=== PATIENT | male | born 1995 | race Caucasian/White ===

== ENCOUNTER 2017-03-03 22:23 | Inpatient (IN) ==
[2017-03-03 23:25] LABS: Basophils # 0.1 K/mcL (0.0-0.2); Basophils % 0.4 %; Eosinophils # 0.4 K/mcL (0.0-0.6); Eosinophils % 2.7 %; Hematocrit 53.7 % (37.5-50.1); Hemoglobin 17.6 g/dL (12.9-16.9); Immature Granulocytes % 0.4 % (0-4); Lymphocytes # 4.3 K/mcL (0.6-4.6); Lymphocytes % 33.1 %; Mean Corpuscular HGB Conc 32.8 g/dL (31.6-35.5); Mean Corpuscular Hemoglobin 27.9 pg (28.0-33.3); Mean Corpuscular Volume 85.2 fL (83.0-100.0); Mean Platelet Volume 10.8 fL (9.4-12.4); Monocytes # 1.2 K/mcL (0.0-1.3); Neutrophils # 7.1 K/mcL (1.6-8.9); Platelet Count 327 K/mcL (140-400); Red Cell Distribution Width 12.2 % (11.5-14.5); Segmented Neutrophils % 54.4 %
[2017-03-03 23:28] LABS: Bilirubin,Urine Negative (Negative); Blood,Urine Negative (Negative); Clarity,Urine Clear (Clear); Color,Urine Yellow (Yellow); Glucose,Urine (UA) Normal (Normal); Ketones,Urine Negative (Negative); Leukocyte Esterase,Urine Negative (Negative); Nitrite,Urine Negative (Negative); PH,Urine 6.5 pH Units (5.0-8.0); Protein,Urine Trace mg/dL (Neg-Trace); Specific Gravity,Urine > 1.030 (1.010-1.025); Urobilinogen,Urine Normal (Normal)
[2017-03-03 23:31] LABS: Bacteria,Urine None Seen per hpf (None-Few); Hyaline Casts,Urine None Seen per lpf (None-Few); RBC,Urine 0-3 per hpf (0-3); Squamous Epithelial Cell,Urine None Seen per lpf (None-Few); WBC,Urine 0-3 per hpf (0-3)
[2017-03-03 23:34] LABS: Amphetamine Screen,Urine Negative ng/mL (Cutoff=1000); Barbiturate Screen,Urine Negative ng/mL (Cutoff=200); Benzodiazepines Screen,Urine Negative ng/mL (Cutoff=200); Cannabinoid Screen,Urine Positive ng/mL (Cutoff = 50); Cocaine Screen,Urine Negative ng/mL (Cutoff= 300); Opiate Screen,Urine Negative ng/mL (Cutoff=300); Phencyclidine Screen,Urine Negative ng/mL (Cutoff=25)
[2017-03-03 23:37] LABS: BUN/Creatinine Ratio 16 (6-26); Blood Urea Nitrogen 15 mg/dL (8-26); Calcium 10.1 mg/dL (8.6-10.8); Carbon Dioxide 28 mEq/L (19-29); Chloride 102 mEq/L (98-109); Glucose 88 mg/dL (70-99); Osmolality,Calculated 290 (280-300); Potassium 3.6 mEq/L (3.5-4.5); Sodium 140 mEq/L (136-145); eGFR For African Americans > 60 (> 60); eGFR For Non-African Americans > 60 (> 60)
--- NOTE | 2017-03-03 23:46 | Emergency Department Note ---
Disposition Clinical Impression: Suicidal ideation Depression Qualifiers: Depression Type: unspecified Qualified Code(s): F32.9 - Major depressive disorder, single episode, unspecified Disposition: Admitted As Inpatient Condition: Good Time of Disposition: 07:21 Psych HPI - General Chief Complaint: ED Psychiatric Symptoms Stated Complaint: Depression. SI Time Seen by Provider: 03/03/17 22:48 Source: patient Nursing Notes Reviewed: Yes Vital Signs Reviewed: Yes - History of Present Illness HPI Narrative: 21-year-old male complains of depression and suicidal ideation 4-5 months. He does describe the plan of wanting to hang himself. He describes a long history of psychiatric illness, going back to his childhood. He mentions in his youth he was given rounds of different antidepressant medications. He mentions he currently is not followed by a family practice provider, or any mental health providers. He does mention as an adult e had been on Depakote, previously diagnosed for bipolar, however he was seen at the [facility] in 2016 was told that he was bipolar and was taken off Depakote. He denied any benefit side effects of Depakote and mentions he had not felt any different afterwards. He does mention he has good support from his family however he denies any significant life stressors. He is accompanied by his sister who adds that there is a strong family history of depression. Vision denies any recent illness, fevers, auditory or visual hallucinations, anxiety. - Related Data Home Medications Medication Instructions Recorded Confirmed No Known Home Drugs 03/03/17 03/03/17 Allergies Allergy/AdvReac Type Severity Reaction Status Date / Time No Known Allergies Allergy Verified 03/03/17 22:25 All systems ED: reviewed and negative except as stated. Constitutional: Denies: fever, chills Eyes: Denies: eye discharge ENT ED: Denies: throat pain Cardiovascular: Denies: palpitations Respiratory: Denies: dyspnea Gastrointestinal: Denies: abdominal pain, nausea, vomiting Genitourinary: Denies: dysuria Musculoskeletal: Denies: back pain, neck pain Integumentary: Denies: rash Neurological: Denies: headache, weakness, numbness, paresthesias Psychiatric: Reports: depression, suicidal thoughts. Denies: anxiety, homicidal thoughts, auditory hallucinations, visual hallucinations Endocrine: Denies: fatigue Hematological/Lymphatic: Denies: easy bleeding Allergic/Immunologic: Denies: facial swelling Past Medical History - Past Medical History Medical history: Reports: no medical history Psychiatric history: Reports: depression, previous psychiatric hospitalization - Social History Smoking Status: Current every day smoker Smokeless Tobacco Status: No Alcohol use: Reports: rarely Drug use: Reports: none Physical Exam - General Limitations: no limitations General appearance: alert, in no apparent distress - Head Head exam: normocephalic - Eye Eye exam: Present: EOMI. Absent: conjunctival injection - ENT ENT exam: normal oropharynx, mucous membranes moist - Neck Neck exam: Present: full ROM - Chest Chest inspection: Present: symmetric chest wall rise - Respiratory Respiratory exam: Present: normal lung sounds bilaterally. Absent: respiratory distress - Cardiovascular Cardiovascular exam: Present: regular rate, normal rhythm - Abdominal Exam Abdominal exam: Present: soft, Non-Tender - Extremities Exam Extremities exam: Present: normal inspection, full ROM, normal capillary refill - Back Exam Back exam: Present: normal inspection, full ROM - Neurological Exam Neurological exam: Present: alert, oriented X3 - Psychiatric Psychiatric exam: Present: normal affect, normal mood - Skin Skin exam: Present: warm, dry, intact, normal color. Absent: rash, cyanosis, diaphoresis Course Course Narrative: Patient presents with 4-5 month history of depression and suicidal ideation. Currently not being followed by mental health providers and not taking any medications. He does describe the plan of wanting to hang himself. Denies any home medications. Does admit to marijuana and denies any other drug use. Workup for medical clearance for 1A evaluation have been ordered. - Reevaluation(s) Reevaluation #1: Patient's has a slight elevation of white blood cell count. He denies any recent illness, fevers, dysuria, shortness of breath. Patient does not appear toxic, he is afebrile, and is not tachycardic. He does mention a history of COPD. We will order a chest x-ray to evaluate for pneumonia, within normal limits feel his white count may be related to his COPD. Time: 23:48 Reevaluation #2: Chest x-ray reviewed by myself interpreted radiologist. No acute concerns. Patient medically cleared for behavioral health evaluation. Time: 00:39 Vital Signs Temperature 98.0 F 03/03/17 22:25 Pulse Rate 83 03/03/17 22:25 Respiratory Rate 14 03/03/17 22:25 Blood Pressure 133/93 03/03/17 22:25 O2 Sat by Pulse Oximetry 98 03/03/17 22:25 Temperature 97 F L 03/04/17 03:24 Pulse Rate 67 03/04/17 03:24 Respiratory Rate 16 03/04/17 03:24 Blood Pressure 142/89 03/04/17 03:24 O2 Sat by Pulse Oximetry 98 03/03/17 22:25 Oxygen Delivery Oxygen Delivery Room Air Psych - MDM Narrative Medical decision making narrative: Chest X-Ray 03/03/17 23:48 IMPRESSION: 1. No acute cardiopulmonary disease. D/ / Skip Sotomayor MD / Skip Sotomayor MD Interpreting Provider: Skip Sotomayor MD - Lab Data Result diagrams: 03/03/17 23:00 03/03/17 23:00 Lab Results 03/03/17 03/03/17 03/03/17 Range/Units 22:46 22:55 23:00 WBC 13.1 H (4.3-11.1) K/mcL RBC 6.30 H (4.19-5.50) M/mcL Hgb 17.6 H (12.9-16.9) g/dL Hct 53.7 H (37.5-50.1) % MCV 85.2 (83.0-100.0) fL MCH 27.9 L (28.0-33.3) pg MCHC 32.8 (31.6-35.5) g/dL RDW 12.2 (11.5-14.5) % Plt Count 327 (140-400) K/mcL MPV 10.8 (9.4-12.4) fL Immature Gran % 0.4 (0-4) % Seg Neutrophils % 54.4 % Lymphocytes % 33.1 % Monocytes % 9.0 % Eosinophils % 2.7 % Basophils % 0.4 % Neutrophils # 7.1 (1.6-8.9) K/mcL Lymphocytes # 4.3 (0.6-4.6) K/mcL Monocytes # 1.2 (0.0-1.3) K/mcL Eosinophils # 0.4 (0.0-0.6) K/mcL Basophils # 0.1 (0.0-0.2) K/mcL Sodium (136-145) mEq/L Potassium (3.5-4.5) mEq/L Chloride (98-109) mEq/L Carbon Dioxide (19-29) mEq/L BUN (8-26) mg/dL Creatinine (0.72-1.25) mg/dL Est GFR ( Amer) (> 60) Est GFR (Non-Af Amer) (> 60) BUN/Creatinine Ratio (6-26) Glucose (70-99) mg/dL Calculated Osmolality (280-300) Calcium (8.6-10.8) mg/dL Urine Color Yellow (Yellow) Urine Clarity Clear (Clear) Urine pH 6.5 (5.0-8.0) pH Units Ur Specific [place] > 1.030 H (1.010-1.025) Urine Protein Trace (Neg-Trace) mg/dL Urine Glucose (UA) Normal (Normal) mg/dL Urine Ketones Negative (Negative) mg/dL Urine Blood Negative (Negative) Urine Nitrite Negative (Negative) Urine Bilirubin Negative (Negative) Urine Urobilinogen Normal (Normal) mg/dL Ur Leukocyte Esterase Negative (Negative) Urine Microscopic RBC 0-3 (0-3) per hpf Urine Microscopic WBC 0-3 (0-3) per hpf Ur Squamous Epith Cells None Seen (None-Few) per lpf Urine Bacteria None Seen (None-Few) per hpf Hyaline Casts None Seen (None-Few) per lpf Salicylates (15-30) mg/dL Urine Opiates Screen Negative (Ukfpmr=947) ng/mL Acetaminophen (10-30) mcg/mL Ur Barbiturates Screen Negative (Qdcygq=909) ng/mL Ur Phencyclidine Scrn Negative (Cutoff=25) ng/mL Ur Amphetamines Screen Negative ([place]=0073) ng/mL U Benzodiazepines Scrn Negative (Zbangt=268) ng/mL Urine Cocaine Screen Negative (Cutoff= 300) ng/mL U Marijuana (THC) Screen Positive H (Cutoff = 50) ng/mL Ethyl Alcohol (0-10) mg/dL 03/03/ Range/Units 23:00 WBC (4.3-11.1) K/mcL RBC (4.19-5.50) M/mcL Hgb (12.9-16.9) g/dL Hct (37.5-50.1) % MCV (83.0-100.0) fL MCH (28.0-33.3) pg MCHC (31.6-35.5) g/dL RDW (11.5-14.5) % Plt Count (140-400) K/mcL MPV (9.4-12.4) fL Immature Gran % (0-4) % Seg Neutrophils % % Lymphocytes % % Monocytes % % Eosinophils % % Basophils % % Neutrophils # (1.6-8.9) K/mcL Lymphocytes # (0.6-4.6) K/mcL Monocytes # (0.0-1.3) K/mcL Eosinophils # (0.0-0.6) K/mcL Basophils # (0.0-0.2) K/mcL Sodium 140 (136-145) mEq/L Potassium 3.6 (3.5-4.5) mEq/L Chloride 102 (98-109) mEq/L Carbon Dioxide 28 (19-29) mEq/L BUN 15 (8-26) mg/dL Creatinine 0.96 (0.72-1.25) mg/dL Est GFR ( Amer) > 60 (> 60) Est GFR (Non-Af Amer) > 60 (> 60) BUN/Creatinine Ratio 16 (6-26) Glucose 88 (70-99) mg/dL Calculated Osmolality 290 (280-300) Calcium 10.1 (8.6-10.8) mg/dL Urine Color (Yellow) Urine Clarity (Clear) Urine pH (5.0-8.0) pH Units Ur Specific [place] (1.010-1.025) Urine Protein (Neg-Trace) mg/dL Urine Glucose (UA) (Normal) mg/dL Urine Ketones (Negative) mg/dL Urine Blood (Negative) Urine Nitrite (Negative) Urine Bilirubin (Negative) Urine Urobilinogen (Normal) mg/dL Ur Leukocyte Esterase (Negative) Urine Microscopic RBC (0-3) per hpf Urine Microscopic WBC (0-3) per hpf Ur Squamous Epith Cells (None-Few) per lpf Urine Bacteria (None-Few) per hpf Hyaline Casts (None-Few) per lpf Salicylates < 5.0 L (15-30) mg/dL Urine Opiates Screen (Obttzb=198) ng/mL Acetaminophen < 1.0 L (10-30) mcg/mL Ur Barbiturates Screen (Fbemqp=056) ng/mL Ur Phencyclidine Scrn (Cutoff=25) ng/mL Ur Amphetamines Screen (Rehzrt=7056) ng/mL U Benzodiazepines Scrn (Kazyqr=462) ng/mL Urine Cocaine Screen (Cutoff= 300) ng/mL U Marijuana (THC) Screen (Cutoff = 50) ng/mL Ethyl Alcohol < 10 (0-10) mg/dL Psychiatric Medical Clearance - Medical Clearance Checklist Medical History: No Social History Section defined Current Vitals: Last Vital Signs Temp 97 F L 03/04/17 03:24 Pulse 67 03/04/17 03:24 Resp 16 03/04/17 03:24 BP 142/89 03/04/17 03:24 Pulse Ox 98 03/03/17 22:25 Psychiatric Lab Panel: Drug Levels and Toxicity 03/03/17 03/03/17 22:55 23:00 Urine Opiates Screen Negative Acetaminophen < 1.0 L Ur Barbiturates Screen Negative Ur Phencyclidine Scrn Negative Ur Amphetamines Screen Negative U Benzodiazepines Scrn Negative Urine Cocaine Screen Negative U Marijuana (THC) Screen Positive H Ethyl Alcohol < 10 Abnormal Labs: Abnormal lab results WBC 13.1 K/mcL (4.3-11.1) H 03/03/17 23:00 RBC 6.30 M/mcL (4.19-5.50) H 03/03/17 23:00 Hgb 17.6 g/dL (12.9-16.9) H 03/03/17 23:00 Hct 53.7 % (37.5-50.1) H 03/03/17 23:00 MCH 27.9 pg (28.0-33.3) L 03/03/17 23:00 Ur Specific [place] > 1.030 (1.010-1.025) H 03/03/17 22:46 Salicylates < 5.0 mg/dL (15-30) L 03/03/17 23:00 Acetaminophen < 1.0 mcg/mL (10-30) L 03/03/17 23:00 U Marijuana (THC) Screen Positive ng/mL (Cutoff = 50) H 03/03/17 22:55 Statement of Medical Clearance: I have evaluated the patient, reviewed diagnostic information, and certify that the patient's medical condition is sufficiently stable that transfer to the psychiatric unit does not pose a significant risk of deterioration. Attestation Statement - Attestation Attestation: I, Erlin Andres MD, personally evaluated this patient and discussed their management with the midlevel provicer, PAC/BEAD PICKER. I reviewed the midlevel provider 's note and agree with the documented findings, medical decision making, and plan of care. 21-year-old male presents to the emergency department with a complaint of depression and suicidal ideation. He has a history of similar problems in the past. No attempt but has a plan. On examination patient is a well-developed well-nourished well-appearing young male in no acute distress. He is alert and oriented 3. He is cooperative. There is no cyanosis or diaphoresis. Chest is nontender to palpation. Breath sounds are clear and equal bilaterally. Heart regular rate and rhythm. Abdomen is soft and nontender with normal bowel sounds. No gross focal neurological deficits. Labs reviewed. The 1A psychiatry service was consulted and evaluated the patient here in the emergency department and the patient is being admitted to the 1A psych unit.
[2017-03-04 00:28] LABS: Acetaminophen < 1.0 mcg/mL (10-30); Ethanol < 10 mg/dL (0-10); Salicylate < 5.0 mg/dL (15-30)
[2017-03-04] MEDS ORDERED: *HR* LORazepam 1 MG TABLET PO PRN (02:22)
[2017-03-04] MEDS ORDERED: Mag Hydrox/Al Hydrox/Simeth 30 ML UDC PO PRN (02:22)
[2017-03-04] MEDS ORDERED: MOM Conc 10 ML UD.LIQ PO PRN (02:22)
[2017-03-04] MEDS ORDERED: traZODone 50 MG TABLET PO PRN (02:22)
[2017-03-04] MEDS ORDERED: *HR* LORazepam 2 MG/ML VIAL IM PRN (02:22)
[2017-03-04] MEDS ORDERED: hydrOXYzine pamoate 25 MG CAPSULE PO PRN (02:22)
[2017-03-04] MEDS ORDERED: Acetaminophen 325 MG TABLET PO PRN (02:22)
[2017-03-04] MEDS ORDERED: Haloperidol Lactate 5 MG/ML VIAL IM PRN (02:22)
[2017-03-04] MEDS: Nicotine 21 MG PATCH.TD24 TD SCH (09:36)
--- NOTE | 2017-03-04 10:09 | Psychiatry History & Physical ---
Date of Encounter: 03/04/17 Time of Encounter: 09:30 History of Present Illness Patient Stated Chief Complaint: "I feel depressed and was having thoughts to harm my self" Medicare Admission Attestation: For traditional Medicare patients the provided hospital inpatient services are reasonable and necessary and in the case of services not specified as inpatient -only under 42 CFR 419.22 (n), that they are appropriately provided as inpatient services in accordance 42 CFR 412.3. For Critical [facility] the patient may reasonably be expected to be discharged or transferred to a hospital within 96 hours after admission to the Critical Access Hospital. Patient is a 21-year-old male, single, currently unemployed, lives with parents, with h/o MDD, ?Bipolar disorder, one inpatient hospitalization in [place] about a year ago, who presented to the ER on account of feeling depression with suicidal ideation 4-5 months. Patient was transferred to the unit for stabilization. Patient seen this morning in the office. He was calm, cooperative and well related. He reported a long h/o of depression starting back in with multiple trials with medications which he stopped due to poor tolerance. Patient is unable to recall any of these medications. Last psych contact was about a year ago during his inpatient hospitalization. He was discharged on Depakote which he stopped taking due to poor effect. He reported exacerbation of his depressive symptoms with suicidal ideation after he moved back to [facility] in July. Patient is unable to identify any significant stressors. Patient reports a strong family history of depression (mother, sisters and uncles). He mentioned he had plans to hang himself last Thursday with a suicide note but proceeded to burn them. He recently was terminated at [employer] after 2wks of employment when he was accused of stealing money. Patient denied past or recent manic, hypomanic or psychotic symptoms including AH/VH/ HI. He admitted to use of marijuana to help numb his symptoms most recent about a week ago. Denied recent or past use of other illicit drugs. Denied problems with his sleep or appetite. History of Present Illness: Mr. Muhammad is a 21 year old male Past Med Surg Social Fam HX - Past Medical History Medical history: no medical history - Past Psychiatric History Psychiatric history: Reports: ADHD, depression, previous psychiatric hospitalization Family psychiatric history: Yes Family History of Suicide: None - Past Surgical History Surgical History: no surgical history - Social History Smoking Status: Current every day smoker Smokeless Tobacco Status: No Alcohol use: rarely Drug use: none Medications & Allergies No Known Home Drugs 03/03/17 [History] Allergies No Known Allergies Allergy (Verified 03/03/17 22:25) Review of Systems Constitutional: Denies: fever, chills, weakness, weight change Eyes: Denies: eye pain, vision change Ears, Nose, Throat: Denies: ear pain, throat pain, dental pain, hearing loss, congestion Cardiovascular: Denies: chest pain, palpitations, dyspnea on exertion Respiratory: Denies: cough, dyspnea, wheezes Gastrointestinal: Denies: abdominal pain, nausea, vomiting, diarrhea, constipation Genitourinary male: Denies: urgency, dysuria, frequency, genital lesions Genitourinary female: Denies: urgency, dysuria, frequency, abnormal menses, dyspareunia Musculoskeletal: Denies: joint swelling, joint pain Integumentary: Denies: rash, lesions, pruritus Neurological: Denies: headache, weakness, numbness, memory loss Endocrine: Denies: fatigue, heat or cold intolerance Hematologic/Lymphatic: Denies: easy bruising, lymphadenopathy Allergic/Immunologic: Denies: urticaria, itchy eyes Mental Status Exam Patient orientation: Yes Person, Yes Time, Yes Place Level of alertness: Alert Patient appearance: Appropriate, Well Groomed Behavior: calm, cooperative Psychomotor activity: Slowed Eye contact: Maintains Eye Contact Mood description: Depressed Affect description: labile, constricted Speech pattern: Normal rate, Normal rhythm, Normal tone Speech volume: Soft/Quiet Thought process: Linear, Goal Oriented Thought content: No Suicidal ideation, No Homicidal ideation, No Overt delusions Perceptual disturbances: No Auditory hallucinations, No Visual hallucinations Attention span: Capable of Focused Attention Memory description: Grossly Intact Patient reliability: Reliable Historian Intelligence estimate: Average Judgment: Limited Insight: Partial Results - Vital Signs Vital signs: Temp Pulse Resp BP Pulse Ox 97 F L 67 16 142/89 98 03/04/17 03:24 03/04/17 03:24 03/04/17 03:24 03/04/17 03:24 03/03/17 22:25 - Labs Labs: Laboratory Last Values WBC 13.1 K/mcL (4.3-11.1) H 03/03/17 23:00 RBC 6.30 M/mcL (4.19-5.50) H 03/03/17 23:00 Hgb 17.6 g/dL (12.9-16.9) H 03/03/17 23:00 Hct 53.7 % (37.5-50.1) H 03/03/17 23:00 MCV 85.2 fL (83.0-100.0) 03/03/17 23:00 MCH 27.9 pg (28.0-33.3) L 03/03/17 23:00 MCHC 32.8 g/dL (31.6-35.5) 03/03/17 23:00 RDW 12.2 % (11.5-14.5) 03/03/17 23:00 Plt Count 327 K/mcL (140-400) 03/03/17 23:00 MPV 10.8 fL (9.4-12.4) 03/03/17 23:00 Immature Gran % 0.4 % (0-4) 03/03/17 23:00 Seg Neutrophils % 54.4 % 03/03/17 23:00 Lymphocytes % 33.1 % 03/03/17 23:00 Monocytes % 9.0 % 03/03/17 23:00 Eosinophils % 2.7 % 03/03/17 23:00 Basophils % 0.4 % 03/03/17 23:00 Neutrophils # 7.1 K/mcL (1.6-8.9) 03/03/17 23:00 Lymphocytes # 4.3 K/mcL (0.6-4.6) 03/03/17 23:00 Monocytes # 1.2 K/mcL (0.0-1.3) 03/03/17 23:00 Eosinophils # 0.4 K/mcL (0.0-0.6) 03/03/17 23:00 Basophils # 0.1 K/mcL (0.0-0.2) 03/03/17 23:00 Sodium 140 mEq/L (136-145) 03/03/17 23:00 Potassium 3.6 mEq/L (3.5-4.5) 03/03/17 23:00 Chloride 102 mEq/L (98-109) 03/03/17 23:00 Carbon Dioxide 28 mEq/L (19-29) 03/03/17 23:00 BUN 15 mg/dL (8-26) 03/03/17 23:00 Creatinine 0.96 mg/dL (0.72-1.25) 03/03/17 23:00 Est GFR ( Amer) > 60 (> 60) 03/03/17 23:00 Est GFR (Non-Af Amer) > 60 (> 60) 03/03/17 23:00 BUN/Creatinine Ratio 16 (6-26) 03/03/17 23:00 Glucose 88 mg/dL (70-99) 03/03/17 23:00 Calculated Osmolality 290 (280-300) 03/03/17 23:00 Calcium 10.1 mg/dL (8.6-10.8) 03/03/17 23:00 Urine Color Yellow (Yellow) 03/03/17 22:46 Urine Clarity Clear (Clear) 03/03/17 22:46 Urine pH 6.5 pH Units (5.0-8.0) 03/03/17 22:46 Ur Specific [place] > 1.030 (1.010-1.025) H 03/03/17 22:46 Urine Protein Trace mg/dL (Neg-Trace) 03/03/17 22:46 Urine Glucose (UA) Normal mg/dL (Normal) 03/03/17 22:46 Urine Ketones Negative mg/dL (Negative) 03/03/17 22:46 Urine Blood Negative (Negative) 03/03/17 22:46 Urine Nitrite Negative (Negative) 03/03/17 22:46 Urine Bilirubin Negative (Negative) 03/03/17 22:46 Urine Urobilinogen Normal mg/dL (Normal) 03/03/17 22:46 Ur Leukocyte Esterase Negative (Negative) 03/03/17 22:46 Urine Microscopic RBC 0-3 per hpf (0-3) 03/03/17 22:46 Urine Microscopic WBC 0-3 per hpf (0-3) 03/03/17 22:46 Ur Squamous Epith Cells None Seen per lpf (None-Few) 03/03/17 22:46 Urine Bacteria None Seen per hpf (None-Few) 03/03/17 22:46 Hyaline Casts None Seen per lpf (None-Few) 03/03/17 22:46 Salicylates < 5.0 mg/dL (15-30) L 03/03/17 23:00 Urine Opiates Screen Negative ng/mL (Upgqrj=558) 03/03/17 22:55 Acetaminophen < 1.0 mcg/mL (10-30) L 03/03/17 23:00 Ur Barbiturates Screen Negative ng/mL (Ghpmuu=605) 03/03/17 22:55 Ur Phencyclidine Scrn Negative ng/mL (Cutoff=25) 03/03/17 22:55 Ur Amphetamines Screen Negative ng/mL (Ihgyhm=2293) 03/03/17 22:55 U Benzodiazepines Scrn Negative ng/mL (Ksmaih=360) 03/03/17 22:55 Urine Cocaine Screen Negative ng/mL (Cutoff= 300) 03/03/17 22:55 U Marijuana (THC) Screen Positive ng/mL (Cutoff = 50) H 03/03/17 22:55 Ethyl Alcohol < 10 mg/dL (0-10) 03/03/17 23:00 Assessment and Plan (1) Major depress dis, severe Current visit: Yes Status: Acute (2) Major depressive disorder, recurrent Current visit: Yes Status: Acute Qualifiers: Qualified Code(s): F33.2 - Major depressive disorder, recurrent severe without psychotic features
[2017-03-05] MEDS: Nicotine 21 MG PATCH.TD24 TD SCH (08:41)
--- NOTE | 2017-03-05 13:33 | Psychiatry Progress Note ---
Date of Encounter: 03/05/17 Time of Encounter: 13:00 Subjective Interval history: Patient seen today and discussed by a multiple disciplinary treatment team There were no reported issues overnight. He was calm, cooperative and well related on evaluation. He slept well last night without the need for a prn sleep medications. Reports significant improvement in his mood with lexapro. Reported initial sedation when he first took lexapro but tolerating it well today with no noted side effect. His affect is brighter and endorsed increased motivation and energy level. On review of symptoms, he denied other mood or psychotic symptoms including AH/VH/SI/HI. Will continue with current management with a tentative discharge date for tomorrow. Results - Vital Signs Vital Signs: Temp Pulse Resp BP Pulse Ox 97.6 F 73 16 123/87 98 03/05/17 09:00 03/05/17 09:00 03/05/17 09:00 03/05/17 09:00 03/03/17 22:25 Assessment and Plan (1) Major depress dis, severe Current visit: Yes Status: Acute (2) Major depressive disorder, recurrent Current visit: Yes Status: Acute Qualifiers: Qualified Code(s): F33.2 - Major depressive disorder, recurrent severe without psychotic features Consult Discharge Plan - Plan Referrals: [facility] [Outside] - 03/19/17 8:30 am (The above appointment is withErlinda for mental health counseling. You will also see Dr. Galilea Otoole for outpatient psychiatric assessment and medication management services on 03/25/2017 at 9:00am in the same office. Please arrive 15 minutes early to your first appointment to complete paperwork. Please bring your insurance card, photo ID and medications in their original bottles. If you do not have insurance, bring proof of income to apply for the sliding fee scale. If you are unable to keep this appointment, 24 hour business notice of cancellation is expected. This is the first available appointment. You may contact the office regularly to check for cancellations that may allow you to be seen sooner. )
[2017-03-05] MEDS ORDERED: Nicotine 2 MG GUM BC PRN (18:27)
--- NOTE | 2017-03-06 08:51 | Discharge Summary ---
Date of Encounter: 03/06/17 Time of Encounter: 10:10 Diagnosis - Discharge Diagnosis (1) Major depress dis, severe Status: Resolved (2) Major depressive disorder, recurrent Status: Resolved Qualifiers: Qualified Code(s): F33.2 - Major depressive disorder, recurrent severe without psychotic features Medications - Discharge Medications Prescriptions: Escitalopram [Lexapro] 10 mg PO DAILY #30 tab Escitalopram [Lexapro] 10 mg PO DAILY #30 tab 03/06/17 [Rx] Allergies No Known Allergies Allergy (Verified 03/03/17 22:25) Provider Date of admission: 03/04/17 02:02 Primary care physician: PCP NO Assessment and Plan - Patient/Caregiver Discharge Instructions Activity: resume usual activities as tolerated Diet: regular diet - Follow up Plan Follow up with: Mike Padilla [facility] [Outside] - 03/19/17 8:30 am (The above appointment is with[facility] for mental health counseling. You will also see Dr. Galilea Otoole for outpatient psychiatric assessment and medication management services on 03/25/2017 at 9:00am in the same office. Please arrive 15 minutes early to your first appointment to complete paperwork. Please bring your insurance card, photo ID and medications in their original bottles. If you do not have insurance, bring proof of income to apply for the sliding fee scale. If you are unable to keep this appointment, 24 hour business notice of cancellation is expected. This is the first available appointment. You may contact the office regularly to check for cancellations that may allow you to be seen sooner. ) Disposition: Home, Self-Care Hospital Course Hospital course: Mr. Muhammad is a 21 year old male single, currently unemployed, lives with parents , with h/o MDD, ?Bipolar disorder, one inpatient hospitalization in [place] about a year ago, who presented to the ER on account of feeling depression with suicidal ideation 4-5 months. Patient was transferred to the unit for stabilization. On the unit, patient has been calm, cooperative and well related. He was started on Lexapro to which he was compliant and responded positively. He reported significant improvement in his mood, energy level and feels more hopeful about his future. He is able to tolerate Lexapro well and reported no noted side effects. He has been sleeping well without the need for sleep medications. Patient hopes to continue with outpatient mental health after his discharge from the hospital. He is logical and goal directed with plans to put out job applications and to be to actively search for a job. On review of symptoms, patient symptoms of depression, anxiety and other mood or psychotic symptoms including AH/VH/SI/HI. Patient is psychiatrically stable at present time and not deem a risk to self or others. Suicide safety plans access suicide hotline, talking to family and going to the nearest ER discussed with patient and verbalized adequate understanding. - Time Spent with Patient Total time spent providing and/or coordinating discharge services: Quality - Multiple Antipsychotics Patient discharged on 2 or more antipsychotic medications: No Procedures - Procedures Procedures: Medication Management, Crisis Stabilization, Supportive Therapy, Group Therapy, Psychoeducational Therapy Mental Status Exam - Mental Status Exam Patient orientation: Yes Person, Yes Time, Yes Place Level of alertness: Alert Patient appearance: Appropriate, Well Groomed Behavior: calm, cooperative Psychomotor activity: Normal Eye contact: Maintains Eye Contact Mood description: Euthymic/stable Affect description: congruent with mood, full range Speech pattern: Normal rate, Normal rhythm, Normal tone Speech Volume: Normal Thought process: Linear, Goal Oriented Thought Content: No Suicidal ideation, No Homicidal ideation, No Overt delusions Perceptual Disturbances: No Auditory hallucinations, No Visual hallucinations Judgment: Fair Insight: Partial
[2017-03-06 10:10] VITALS: BP 122/73
== END 2017-03-06 11:50 | disposition home or self-care (01) | DRG 751 ==
LOC: EMEROO 22:23 → 1ANU 03-04 02:02
PROVIDERS: ADMIT Psychiatry & Neurology Psychiatry; ATTEND Psychiatry & Neurology Psychiatry